=== PATIENT | male | born 1950 | race Two or more races ===

== ENCOUNTER 2024-10-26 13:09 | Inpatient (IN) | payer OTHER ==
[~2024-10-26] VITALS: Ht 177.8 cm; Wt 81.6 kg
[2024-10-26] MEDS ORDERED: 0.9 % SODIUM CHLORIDE 1,000 ML IV SCH (13:47)
[2024-10-26] MEDS ORDERED: BARIUM SULFATE 450 ML ORAL.SUSP PO ONE (14:45)
--- NOTE | 2024-10-26 15:02 | NUR ---
PTE MASCLINO DE 73 YRS ALERTA CONCIENTE Y TRANQUILA EN JOSE LLEGA EN ABULANCIA POR SANGRADO RECTAL SE EJECUTA ORDEN MEDICA.
[2024-10-26 15:17] LABS: MEAN CELL VOLUME 92.4 fL (80.0-100.00); MEAN CORPUSCULAR HGB CONC 34.1 g/dl (32.0-36.0); PLATELET COUNT 168 K/uL (150-450); RED BLOOD COUNT 1.93 M/uL (4.00-6.00); RED CELL DISTRIBUTION WIDTH 13.4 % (11.5-14.5)
[2024-10-26 15:42] LABS: MEAN CORPUSCULAR HEMOGLOBIN 31.6 pg (27.00-32.0)
[2024-10-26 15:43] LABS: HEMATOCRIT 17.9 % (39.0-48.0); HEMOGLOBIN 6.1 g/dL (13-16.00)
[2024-10-26 15:49] LABS: URINE APPEARANCE Clear; URINE BILIRRUBIN Negative (NEGATIVE); URINE BLOOD Negative; URINE COLOR Yellow; URINE GLUCOSE Negative (NEGATIVE); URINE KETONE Negative (NEGATIVE); URINE LEUKOCYTE Negative; URINE NITRATE Negative; URINE PROTEIN Negative (NEGATIVE); URINE UROBILINOGEN 0.2 E.U./dl
[2024-10-26 15:53] LABS: URINE WBC 5.8 uL (0.0-23.2)
[2024-10-26 15:59] LABS: URINE BACTERIA 2.4 uL (0.0-1933); URINE EPITHELIAL CELLS 0.7 uL (0.0-38.8); URINE RBC 0.8 uL (0.0-20.8)
[2024-10-26 16:04] LABS: ALBUMIN 2.6 gm/dL (3.4-5.0); BILIRUBIN TOTAL 0.17 mg/dL (0.3-1.2); CALCIUM 8.5 mg/dL (8.5-10.1); CREATININE SERUM 1.21 mg/dL (0.70-1.30); GFR 58.78; GLOBULINA 2.4 G/DL (2.4-3.5); POTASSIUM 4.73 mEq/L (3.5-5.1)
[2024-10-26] MEDS ORDERED: PANTOPRAZOLE SODIUM 40 MG/VIAL VIAL IV SCH (17:45)
[2024-10-26] MEDS ORDERED: CEFTRIAXONE SODIUM 2,000 MG in 0.9 % SODIUM CHLORIDE 100 ML IV SCH (20:27)
[2024-10-26] MEDS ORDERED: MORPHINE SULFATE 2 MG/ML CARTRIDGE IV PRN (20:30)
[2024-10-26] MEDS ORDERED: ONDANSETRON HCL 4 MG in 0.9 % SODIUM CHLORIDE 50 ML IV PRN (20:30)
[2024-10-26 21:16] VITALS: BP 138/72
[2024-10-26 21:27] LABS: INR 1.01
[2024-10-26 21:39] LABS: PARTIAL THROMBOPLASTIN TIME < 20.0 SECONDS (22.0-34.0)
[2024-10-26 23:04] VITALS: BP 122/57; O2SAT 100
[2024-10-27] VITALS (10 sets, daily range): BP systolic 107–143; BP diastolic 63–85; O2SAT 95–100
[2024-10-27 12:53] LABS: MEAN CELL VOLUME 91.6 fL (80.0-100.00); MEAN CORPUSCULAR HGB CONC 34.6 g/dl (32.0-36.0); RED BLOOD COUNT 2.39 M/uL (4.00-6.00); RED CELL DISTRIBUTION WIDTH 13.2 % (11.5-14.5)
[2024-10-27 13:01] LABS: MEAN CORPUSCULAR HEMOGLOBIN 31.7 pg (27.00-32.0)
[2024-10-27 13:07] LABS: HEMATOCRIT 21.9 % (39.0-48.0); HEMOGLOBIN 7.6 g/dL (13-16.00); PLATELET COUNT 129 K/uL (150-450)
[2024-10-27 14:31] LABS: COL EPI 125 SECONDS (82-175)
[2024-10-27] MEDS ORDERED: DIPHENHYDRAMINE HCL 50 MG/ML VIAL 1ML ONE (20:58)
[2024-10-27] MEDS ORDERED: DIPHENHYDRAMINE HCL 50 MG/ML VIAL 1ML IV STA (21:20)
[2024-10-27 23:21] LABS: HEMATOCRIT 24.2 % (39.0-48.0); HEMOGLOBIN 8.5 g/dL (13-16.00); MEAN CELL VOLUME 90.5 fL (80.0-100.00); MEAN CORPUSCULAR HEMOGLOBIN 31.8 pg (27.00-32.0); PLATELET COUNT 148 K/uL (150-450); RED BLOOD COUNT 2.67 M/uL (4.00-6.00); RED CELL DISTRIBUTION WIDTH 13.8 % (11.5-14.5)
[2024-10-27 23:33] LABS: BILIRUBIN TOTAL 0.51 mg/dL (0.3-1.2); CALCIUM 8.6 mg/dL (8.5-10.1); CREATININE SERUM 1.24 mg/dL (0.70-1.30); GFR 57.14; GLOBULINA 2.4 G/DL (2.4-3.5); POTASSIUM 3.66 mEq/L (3.5-5.1); TOTAL PROTEIN 5.4 gm/dL (6.4-8.2)
[2024-10-27] MEDS ORDERED: LORazepam 2 MG/ML VIAL IV PRN (23:45)
[2024-10-27] MEDS ORDERED: THIAMINE HCL 100 MG/ML 2 ML VIAL IV SCH (23:45)
[2024-10-28] VITALS (15 sets, daily range): BP systolic 82–119; BP diastolic 65–84; O2SAT 92–100
[2024-10-28] MEDS ORDERED: NITROGLYCERIN IN 5 % DEXTROSE 50 MG/250 ML BOTTLE IV ONE (03:37)
[2024-10-28] MEDS ORDERED: NITROGLYCERIN IN 5 % DEXTROSE 250 ML IV SCH ×2 (04:00→06:30)
[2024-10-28 04:25] LABS: MEAN CELL VOLUME 90.9 fL (80.0-100.00); MEAN CORPUSCULAR HEMOGLOBIN 32.2 pg (27.00-32.0); MEAN CORPUSCULAR HGB CONC 35.6 g/dl (32.0-36.0); PLATELET COUNT 140 K/uL (150-450); RED BLOOD COUNT 2.45 M/uL (4.00-6.00); RED CELL DISTRIBUTION WIDTH 13.7 % (11.5-14.5)
[2024-10-28 04:26] LABS: HEMATOCRIT 22.3 % (39.0-48.0); HEMOGLOBIN 7.9 g/dL (13-16.00)
[2024-10-28 07:09] LABS: MEAN CELL VOLUME 90.8 fL (80.0-100.00); MEAN CORPUSCULAR HGB CONC 35.6 g/dl (32.0-36.0); PLATELET COUNT 136 K/uL (150-450); RED CELL DISTRIBUTION WIDTH 13.9 % (11.5-14.5)
[2024-10-28] MEDS ORDERED: DIPHENHYDRAMINE HCL 50 MG/ML VIAL 1ML IV SCH (07:15)
[2024-10-28 07:16] LABS: HEMATOCRIT 20.9 % (39.0-48.0); HEMOGLOBIN 7.4 g/dL (13-16.00); MEAN CORPUSCULAR HEMOGLOBIN 32.1 pg (27.00-32.0)
[2024-10-28] MEDS ORDERED: MIDAZOLAM HCL 2 MG/2 ML VIAL IV PUSH ONE (14:45)
[2024-10-28] MEDS ORDERED: AMINO ACIDS 4.25 %/DEXTROSE 5% 1,000 ML PERIFERAL SCH (17:00)
[2024-10-28] MEDS ORDERED: POLYETHYLENE GLYCOL 3350 238 GM POWDER PO NR (18:00)
[2024-10-28 22:16] LABS: MEAN CELL VOLUME 89.3 fL (80.0-100.00); MEAN CORPUSCULAR HEMOGLOBIN 31.2 pg (27.00-32.0); MEAN CORPUSCULAR HGB CONC 34.9 g/dl (32.0-36.0); PLATELET COUNT 134 K/uL (150-450); RED BLOOD COUNT 2.91 M/uL (4.00-6.00); RED CELL DISTRIBUTION WIDTH 14.8 % (11.5-14.5)
[2024-10-28 22:17] LABS: HEMOGLOBIN 9.1 g/dL (13-16.00)
[2024-10-28 22:36] LABS: CALCIUM 8.5 mg/dL (8.5-10.1); CHOL HDL RATIO 3.1 (0-5.0); CREATININE SERUM 1.34 mg/dL (0.70-1.30); GFR 52.25; POTASSIUM 3.76 mEq/L (3.5-5.1)
[2024-10-29] VITALS (19 sets, daily range): BP systolic 19–130; BP diastolic 65–96; O2SAT 88–100
[2024-10-29] MEDS ORDERED: NA PHOS,M-B/NA PHOS,DI-BA 1 BOTTLE ENEMA RECTAL NR (06:00)
[2024-10-29 08:54] LABS: HEMATOCRIT 30.6 % (39.0-48.0); HEMOGLOBIN 10.6 g/dL (13-16.00); MEAN CELL VOLUME 90.4 fL (80.0-100.00); MEAN CORPUSCULAR HEMOGLOBIN 31.2 pg (27.00-32.0); MEAN CORPUSCULAR HGB CONC 34.6 g/dl (32.0-36.0); RED BLOOD COUNT 3.39 M/uL (4.00-6.00); RED CELL DISTRIBUTION WIDTH 15.1 % (11.5-14.5)
[2024-10-29 09:41] LABS: ALBUMIN 2.9 gm/dL (3.4-5.0); BILIRUBIN TOTAL 1.17 mg/dL (0.3-1.2); CALCIUM 8.5 mg/dL (8.5-10.1); CREATININE SERUM 1.69 mg/dL (0.70-1.30); GFR 39.98; GLOBULINA 2.5 G/DL (2.4-3.5); MAGNESIUM 2.1 mg/dL (1.8-2.4); POTASSIUM 4.01 mEq/L (3.5-5.1); TOTAL PROTEIN 5.4 gm/dL (6.4-8.2)
[2024-10-29 10:09] LABS: PLATELET COUNT 144 K/uL (150-450)
[2024-10-29 10:32] LABS: ob POSITIVE (NEGATIVE)
[2024-10-29] MEDS ORDERED: MIDAZOLAM HCL 2 MG/2 ML VIAL IV PUSH ONE (15:15)
[2024-10-29] MEDS ORDERED: FentaNYL CITRATE/PF 50MCG/ML 2ML VIAL IJ ONE ×2 (15:15→21:45)
[2024-10-29 16:35] LABS: CKMB 153.9 NG/ML (0.5-3.6)
[2024-10-29] MEDS ORDERED: CEFTRIAXONE SODIUM 2,000 MG VIAL IV SCH (17:00)
[2024-10-29] MEDS ORDERED: NALOXONE HCL 0.4 MG/ML AMPUL ONE (17:34)
[2024-10-29] MEDS ORDERED: NALOXONE HCL 0.4 MG/ML AMPUL IV STA (17:52)
[2024-10-29] MEDS ORDERED: NALOXONE HCL 0.4 MG/ML AMPUL IV ONE ×2 (18:15→21:30)
[2024-10-29 18:52] LABS: ABG PO2 213.3 mmHg (80-100); BASE EXCESS -20.3 mmol/l; BICARBONATE 6.6 mmol/l (23-25); SaO2 99.3 %; Tco2 7.2 mmol/l
[2024-10-29] MEDS ORDERED: SODIUM BICARBONATE 50MEQ/50ML VIAL IV ONE (18:58)
[2024-10-29 19:10] LABS: HEMATOCRIT 30.1 % (39.0-48.0); HEMOGLOBIN 10.4 g/dL (13-16.00); MEAN CELL VOLUME 91.4 fL (80.0-100.00); MEAN CORPUSCULAR HEMOGLOBIN 31.5 pg (27.00-32.0); MEAN CORPUSCULAR HGB CONC 34.4 g/dl (32.0-36.0); PLATELET COUNT 136 K/uL (150-450)
[2024-10-29] MEDS ORDERED: METRONIDAZOLE/SODIUM CHLORIDE 100 ML IV SCH (21:00)
[2024-10-29 21:03] LABS: ABG PH 7.145 (7.35-7.45); ABG pCO2 19.6 mmHg (35-45); o2 100 %; puncture site LT FEMORAL
[2024-10-29 21:04] LABS: mode MECHANI VENTILATOR
[2024-10-29 21:06] LABS: ABG PH 7.434 (7.35-7.45); ABG PO2 76.4 mmHg (80-100); BASE EXCESS -10.7 mmol/l; BICARBONATE 10.3 mmol/l (23-25); SaO2 95.2 %; Tco2 10.7 mmol/l; o2 21 %
[2024-10-29 21:07] LABS: ABG pCO2 15.7 mmHg (35-45); allen test SATISFACTORY; mode ROOM AIR; puncture site RADIAL RIGHT
[2024-10-29] MEDS ORDERED: MIDAZOLAM HCL 100 MG in 0.9 % SODIUM CHLORIDE 100 ML IV SCH (21:30)
[2024-10-29] MEDS ORDERED: MIDAZOLAM HCL 2 MG/2 ML VIAL IV ONE ×2 (21:30→23:00)
[2024-10-29] MEDS ORDERED: SODIUM BICARBONATE 100 MEQ in DEXTROSE 5 % IN WATER 1,000 ML IV SCH (21:45)
[2024-10-29] MEDS ORDERED: DOPamine HCL IN DEXTROSE 5 % 250 ML IV SCH (21:45)
[2024-10-29] MEDS ORDERED: MAGNESIUM SULFATE IN WATER 50 ML IV ONE (21:45)
[2024-10-29] MEDS ORDERED: SODIUM BICARBONATE 1 MEQ/ML DISP.SYRIN 50ML IV ONE (21:45)
[2024-10-30] VITALS (20 sets, daily range): BP systolic 100–121; BP diastolic 73–581; O2SAT 98–100
[2024-10-30 05:42] LABS: HEMATOCRIT 27.7 % (39.0-48.0); HEMOGLOBIN 9.5 g/dL (13-16.00); MEAN CELL VOLUME 92.7 fL (80.0-100.00); MEAN CORPUSCULAR HEMOGLOBIN 31.8 pg (27.00-32.0); MEAN CORPUSCULAR HGB CONC 34.3 g/dl (32.0-36.0); RED BLOOD COUNT 2.99 M/uL (4.00-6.00); RED CELL DISTRIBUTION WIDTH 14.8 % (11.5-14.5)
[2024-10-30 05:43] LABS: PLATELET COUNT 106 K/uL (150-450)
[2024-10-30] MEDS ORDERED: SODIUM BICARBONATE 50MEQ/50ML VIAL IV ONE (06:26)
[2024-10-30 06:30] LABS: ALBUMIN 2.6 gm/dL (3.4-5.0); BILIRUBIN TOTAL 0.66 mg/dL (0.3-1.2); CALCIUM 7.8 mg/dL (8.5-10.1); CREATININE SERUM 2.11 mg/dL (0.70-1.30); GFR 30.94; GLOBULINA 2.4 G/DL (2.4-3.5); MAGNESIUM 2.1 mg/dL (1.8-2.4); POTASSIUM 3.81 mEq/L (3.5-5.1)
[2024-10-30] MEDS ORDERED: DEXTROSE 50 % IN WATER 0.5 G/ML DISP.SYRIN IV PRN (07:15)
[2024-10-30] MEDS ORDERED: INSULIN LISPRO 1,000 UNIT/10 ML UNITS SUBCUTANEO PRN (07:15)
[2024-10-30] MEDS ORDERED: SODIUM BICARBONATE 100 MEQ in DEXTROSE 5 % IN WATER 1,000 ML IV SCH (07:15)
[2024-10-30 08:44] LABS: ABG PH 7.504 (7.35-7.45); ABG PO2 305.5 mmHg (80-100); BASE EXCESS -3.2 mmol/l; BICARBONATE 17.7 mmol/l (23-25); SaO2 99.9 %; Tco2 18.4 mmol/l
[2024-10-30 08:45] LABS: allen test SATISFACTORY; mode MECHANI VENTILATOR; o2 100 %; puncture site RADIAL LEFT
[2024-10-30] MEDS ORDERED: POLYVINYL ALCOHOL 15 ML DROPS OP SCH (11:08)
[2024-10-30] MEDS ORDERED: CHLORHEXIDINE GLUCONATE 15ML BRUSH KIT MM SCH (11:08)
[2024-10-30 21:12] LABS: HEMATOCRIT 27.1 % (39.0-48.0); HEMOGLOBIN 9.3 g/dL (13-16.00); MEAN CELL VOLUME 91.6 fL (80.0-100.00); MEAN CORPUSCULAR HEMOGLOBIN 31.5 pg (27.00-32.0); MEAN CORPUSCULAR HGB CONC 34.3 g/dl (32.0-36.0); PLATELET COUNT 78 K/uL (150-450); RED BLOOD COUNT 2.96 M/uL (4.00-6.00); RED CELL DISTRIBUTION WIDTH 14.8 % (11.5-14.5)
[2024-10-31] VITALS (18 sets, daily range): BP systolic 86–122; BP diastolic 64–87; O2SAT 98–100
[2024-10-31 08:06] LABS: ALBUMIN 2.3 gm/dL (3.4-5.0); BILIRUBIN TOTAL 1.05 mg/dL (0.3-1.2); CALCIUM 7.9 mg/dL (8.5-10.1); CREATININE SERUM 2.33 mg/dL (0.70-1.30); GFR 27.6; GLOBULINA 2.8 G/DL (2.4-3.5); MAGNESIUM 1.9 mg/dL (1.8-2.4); POTASSIUM 3.47 mEq/L (3.5-5.1); TOTAL PROTEIN 5.1 gm/dL (6.4-8.2)
[2024-10-31 08:08] LABS: C-REACTIVE PROTEIN 13.6 MG/DL (0.00-0.29)
[2024-10-31 08:15] LABS: HEMATOCRIT 29.3 % (39.0-48.0); HEMOGLOBIN 9.9 g/dL (13-16.00); MEAN CELL VOLUME 93.8 fL (80.0-100.00); MEAN CORPUSCULAR HEMOGLOBIN 31.8 pg (27.00-32.0); MEAN CORPUSCULAR HGB CONC 33.9 g/dl (32.0-36.0); RED BLOOD COUNT 3.12 M/uL (4.00-6.00); RED CELL DISTRIBUTION WIDTH 15.4 % (11.5-14.5)
[2024-10-31 08:37] LABS: PLATELET COUNT 81 K/uL (150-450)
[2024-10-31 08:52] LABS: ABG PO2 170.2 mmHg (80-100); BICARBONATE 16.3 mmol/l (23-25); SaO2 99.5 %; Tco2 17.1 mmol/l
[2024-10-31] MEDS ORDERED: CYANOCOBALAMIN (VITAMIN B-12) 1,000 MCG/ML VIAL IM SCH (09:00)
[2024-10-31] MEDS ORDERED: SOD FERRIC GLUC COMPLX/SUCROSE 62.5 MG in 0.9 % SODIUM CHLORIDE 50 ML IV SCH (09:00)
[2024-10-31 09:05] LABS: ABG pCO2 25.1 mmHg (35-45); allen test SATISFACTORY; mode MECHANI VENTILATOR; o2 60 %; puncture site RADIAL LEFT
[2024-10-31] MEDS ORDERED: PANTOPRAZOLE SODIUM 40 MG/VIAL VIAL IV SCH ×2 (22:45)
[2024-11-01] VITALS (18 sets, daily range): BP systolic 88–116; BP diastolic 63–88; O2SAT 98–100
[2024-11-01 08:46] LABS: ABG PH 7.394 (7.35-7.45); ABG pCO2 26.4 mmHg (35-45); BASE EXCESS -7.3 mmol/l; BICARBONATE 15.8 mmol/l (23-25); Tco2 16.6 mmol/l
[2024-11-01 09:23] LABS: HEMATOCRIT 28.3 % (39.0-48.0); HEMOGLOBIN 9.5 g/dL (13-16.00); MEAN CELL VOLUME 93.9 fL (80.0-100.00); MEAN CORPUSCULAR HEMOGLOBIN 31.5 pg (27.00-32.0); MEAN CORPUSCULAR HGB CONC 33.5 g/dl (32.0-36.0); PLATELET COUNT 73 K/uL (150-450); RED BLOOD COUNT 3.01 M/uL (4.00-6.00); RED CELL DISTRIBUTION WIDTH 15.8 % (11.5-14.5)
[2024-11-01] MEDS ORDERED: AMIODARONE HCL 900 MG in DEXTROSE 5 % IN WATER 500 ML IV SCH (10:30)
[2024-11-01] MEDS ORDERED: AMIODARONE HCL 50 MG/ML AMPUL IV SCH (10:30)
[2024-11-01 12:40] LABS: ALBUMIN 2.1 gm/dL (3.4-5.0); BILIRUBIN TOTAL 1.39 mg/dL (0.3-1.2); CREATININE SERUM 2.86 mg/dL (0.70-1.30); GFR 21.78; GLOBULINA 2.7 G/DL (2.4-3.5); POTASSIUM 3.73 mEq/L (3.5-5.1); TOTAL PROTEIN 4.8 gm/dL (6.4-8.2)
[2024-11-01 13:58] LABS: allen test SATISFACTORY; mode MECHANI VENTILATORA; o2 50 %; puncture site RADIAL RIGHT
[2024-11-02] VITALS (23 sets, daily range): BP systolic 100–10117; BP diastolic 8–91; O2SAT 98–100
[2024-11-02 07:03] LABS: HEMATOCRIT 28.6 % (39.0-48.0); MEAN CELL VOLUME 95.8 fL (80.0-100.00); RED BLOOD COUNT 2.98 M/uL (4.00-6.00); RED CELL DISTRIBUTION WIDTH 15.7 % (11.5-14.5)
[2024-11-02 07:08] LABS: HEMOGLOBIN 9.4 g/dL (13-16.00); MEAN CORPUSCULAR HEMOGLOBIN 31.5 pg (27.00-32.0); PLATELET COUNT 86 K/uL (150-450)
[2024-11-02 07:24] LABS: INR 1.3; PARTIAL THROMBOPLASTIN TIME 32.1 SECONDS (22.0-34.0)
[2024-11-02 07:29] LABS: BILIRUBIN TOTAL 1.35 mg/dL (0.3-1.2); BILIRUBIN,CONJUGATED 0.86 mg/dL (0.0-0.2); BILIRUBIN,UNCONJUGATED 0.49 mg/dL (0.0-0.6); CHOL HDL RATIO 5.2 (0-5.0); CREATININE SERUM 2.83 mg/dL (0.70-1.30); GFR 22.05; MAGNESIUM 2.5 mg/dL (1.8-2.4); POTASSIUM 3.88 mEq/L (3.5-5.1)
[2024-11-02 07:30] LABS: PROTHROMBIN TIME 13.9 SECONDS (9.0-11.5)
[2024-11-02] MEDS ORDERED: PANTOPRAZOLE SODIUM 40 MG/VIAL VIAL IV SCH ×2 (09:00→21:00)
[2024-11-02 09:21] LABS: UREA CLEARANCE 13.6 ML/MIN
[2024-11-02 12:58] LABS: ABG PH 7.385 (7.35-7.45); ABG PO2 212.3 mmHg (80-100); ABG pCO2 26.6 mmHg (35-45); BASE EXCESS -7.6 mmol/l; BICARBONATE 15.6 mmol/l (23-25); SaO2 99.7 %; Tco2 16.4 mmol/l
[2024-11-02 12:59] LABS: allen test SATISFACTORY; mode MECHANI VENTILATOR; o2 50 %; puncture site RADIAL RIGHT
[2024-11-02] MEDS ORDERED: MIDAZOLAM HCL 50 MG in 0.9 % SODIUM CHLORIDE 50 ML IV SCH (22:30)
[2024-11-02 23:06] LABS: PH,URINE 5.5 (5.0-8.0); URINE APPEARANCE Turbid; URINE BILIRRUBIN Negative (NEGATIVE); URINE BLOOD Moderate; URINE COLOR Dark Yellow; URINE GLUCOSE Negative (NEGATIVE); URINE KETONE Negative (NEGATIVE); URINE LEUKOCYTE Small; URINE NITRATE Negative; URINE UROBILINOGEN 0.2 E.U./dl
[2024-11-02 23:13] LABS: URINE CAST 11.48 uL (0.0-1.40); URINE EPITHELIAL CELLS 148.3 uL (0.0-38.8); URINE WBC 81.6 uL (0.0-23.2)
[2024-11-02 23:33] LABS: URINE CRYSTALS MANY /HPF; URINE PROTEIN 100 (NEGATIVE)
[2024-11-03] VITALS (16 sets, daily range): BP systolic 111–157; BP diastolic 75–92; O2SAT 97–99
[2024-11-03 08:15] LABS: ABG PH 7.366 (7.35-7.45); ABG PO2 126.2 mmHg (80-100); BASE EXCESS -7.1 mmol/l; BICARBONATE 16.8 mmol/l (23-25); SaO2 98.6 %; Tco2 17.7 mmol/l
[2024-11-03 08:21] LABS: HEMATOCRIT 27.7 % (39.0-48.0); HEMOGLOBIN 9.3 g/dL (13-16.00); MEAN CELL VOLUME 94.6 fL (80.0-100.00); MEAN CORPUSCULAR HEMOGLOBIN 31.8 pg (27.00-32.0); MEAN CORPUSCULAR HGB CONC 33.6 g/dl (32.0-36.0); PLATELET COUNT 98 K/uL (150-450); RED BLOOD COUNT 2.93 M/uL (4.00-6.00); RED CELL DISTRIBUTION WIDTH 16.2 % (11.5-14.5)
[2024-11-03 09:13] LABS: ALBUMIN 1.8 gm/dL (3.4-5.0); BILIRUBIN TOTAL 1.08 mg/dL (0.3-1.2); CALCIUM 8.1 mg/dL (8.5-10.1); CREATININE SERUM 2.14 mg/dL (0.70-1.30); GFR 30.44; POTASSIUM 3.97 mEq/L (3.5-5.1); TOTAL PROTEIN 4.8 gm/dL (6.4-8.2)
[2024-11-03 10:35] LABS: allen test SATISFACTORY; mode MECHANI VENTILATOR; o2 35 %; puncture site RADIAL RIGHT
[2024-11-03] MEDS ORDERED: CEFEPIME HCL 2,000 MG VIAL IV SCH (17:00)
[2024-11-04] VITALS (10 sets, daily range): BP systolic 105–131; BP diastolic 74–87; O2SAT 99–100
[2024-11-04 07:01] LABS: ALBUMIN 1.8 gm/dL (3.4-5.0); BILIRUBIN TOTAL 1.18 mg/dL (0.3-1.2); CALCIUM 8.4 mg/dL (8.5-10.1); CREATININE SERUM 1.83 mg/dL (0.70-1.30); GFR 36.47; POTASSIUM 3.97 mEq/L (3.5-5.1); TOTAL PROTEIN 4.8 gm/dL (6.4-8.2)
[2024-11-04 08:59] LABS: ABG PH 7.353 (7.35-7.45); ABG PO2 137.2 mmHg (80-100); ABG pCO2 31.9 mmHg (35-45); BICARBONATE 17.3 mmol/l (23-25); SaO2 98.8 %; Tco2 18.3 mmol/l
[2024-11-04] MEDS ORDERED: AMIODARONE HCL 200 MG TABLET PO SCH (09:00)
[2024-11-04 09:24] LABS: allen test NO SATISFACTORY; mode MECHANI VENTILATOR; o2 35 %; puncture site RADIAL RIGHT
[2024-11-04] MEDS ORDERED: RINGERS SOLUTION,LACTATED 1,000 ML IV SCH (11:15)
[2024-11-04] MEDS ORDERED: CITRIC ACID/SODIUM CITRATE 30 ML BLIST.PACK PO SCH (21:00)
[2024-11-05 04:00] VITALS: BP 126/86; O2SAT 99
[2024-11-05 06:02] LABS: HEMATOCRIT 29.6 % (39.0-48.0); HEMOGLOBIN 9.7 g/dL (13-16.00); MEAN CELL VOLUME 97.1 fL (80.0-100.00); MEAN CORPUSCULAR HEMOGLOBIN 31.8 pg (27.00-32.0); MEAN CORPUSCULAR HGB CONC 32.7 g/dl (32.0-36.0); PLATELET COUNT 135 K/uL (150-450); RED BLOOD COUNT 3.04 M/uL (4.00-6.00); RED CELL DISTRIBUTION WIDTH 17.5 % (11.5-14.5)
[2024-11-05 06:50] LABS: ALBUMIN 1.6 gm/dL (3.4-5.0); BILIRUBIN TOTAL 0.94 mg/dL (0.3-1.2); CALCIUM 8.4 mg/dL (8.5-10.1); CREATININE SERUM 1.49 mg/dL (0.70-1.30); GFR 46.23; GLOBULINA 3.1 G/DL (2.4-3.5); POTASSIUM 3.99 mEq/L (3.5-5.1); TOTAL PROTEIN 4.7 gm/dL (6.4-8.2)
[2024-11-05 07:16] VITALS: BP 128/94; O2SAT 99
[2024-11-05 07:55] LABS: ABG PH 7.345 (7.35-7.45); ABG PO2 165.8 mmHg (80-100); BASE EXCESS -6.9 mmol/l; BICARBONATE 17.6 mmol/l (23-25); SaO2 99.3 %; Tco2 18.6 mmol/l
[2024-11-05 08:02] LABS: allen test SATISFACTORY; mode MECHANI VENTILATOR; o2 35 %; puncture site RADIAL RIGHT
[2024-11-05] MEDS ORDERED: METOPROLOL SUCCINATE 25 MG TAB.SR.24H PO SCH (09:00)
[2024-11-05 12:00] VITALS: BP 138/91; O2SAT 99
[2024-11-05] MEDS ORDERED: AMINO ACIDS/PROTEIN HYDROLYS 30 ML BLIST.PACK NGT NR (14:00)
[2024-11-05] MEDS ORDERED: DEXTROSE 50 % IN WATER 0.5 G/ML VIAL IV PRN (14:15)
[2024-11-05 15:39] VITALS: BP 132/94; O2SAT 98
[2024-11-05] MEDS ORDERED: AMINO ACIDS/PROTEIN HYDROLYS 30 ML BLIST.PACK NGT SCH (17:00)
[2024-11-05 20:50] VITALS: BP 116/71; O2SAT 99
== END 2024-11-07 07:30 | disposition expired | DRG 377 ==
LOC: ER 13:09 → ICU-2 20:58 → ICU 20:58 → ICU-2 11-06 03:51 → ICU 11-07 07:27
PROVIDERS: Emergency Medicine; General Practice; Internal Medicine; Internal Medicine Infectious Disease; ADMIT Internal Medicine; ATTEND Internal Medicine
PROC: BW21YZZ Computerized Tomography (CT Scan) of Abdomen and Pelvis using Other Contrast (ICD-10-PCS; 2024-10-26)
PROC: 30243N1 Transfusion of Nonautologous Red Blood Cells into Central Vein, Percutaneous Approach (ICD-10-PCS; 2024-10-27)
PROC: 02HV33Z Insertion of Infusion Device into Superior Vena Cava, Percutaneous Approach (ICD-10-PCS; 2024-10-27)
PROC: 0DJ08ZZ Inspection of Upper Intestinal Tract, Via Natural or Artificial Opening Endoscopic (ICD-10-PCS; principal; 2024-10-28)
PROC: B24BYZZ Ultrasonography of Heart with Aorta using Other Contrast (ICD-10-PCS; 2024-10-28)
PROC: 0BH18EZ Insertion of Endotracheal Airway into Trachea, Via Natural or Artificial Opening Endoscopic (ICD-10-PCS; 2024-10-29)
PROC: 5A1955Z Respiratory Ventilation, Greater than 96 Consecutive Hours (ICD-10-PCS; 2024-10-29)
PROC: B24BYZZ Ultrasonography of Heart with Aorta using Other Contrast (ICD-10-PCS; 2024-10-29)
PROC: 0DJ08ZZ Inspection of Upper Intestinal Tract, Via Natural or Artificial Opening Endoscopic (ICD-10-PCS; 2024-10-30)
PROC: 5A0222C Assistance with Cardiac Oxygenation, Supersaturated (ICD-10-PCS; 2024-11-05)
DX: K62.5 Hemorrhage of anus and rectum (principal); I21.4 Non-ST elevation (NSTEMI) myocardial infarction; E87.20 Acidosis, unspecified; I24.9 Acute ischemic heart disease, unspecified; D64.9 Anemia, unspecified; I46.9 Cardiac arrest, cause unspecified; K44.9 Diaphragmatic hernia without obstruction or gangrene; I50.9 Heart failure, unspecified; D69.6 Thrombocytopenia, unspecified; N19 Unspecified kidney failure; B96.5 Pseudomonas (aeruginosa) (mallei) (pseudomallei) as the cause of diseases classified elsewhere